=== PATIENT | female | born 1985 | race Caucasian/White ===

== ENCOUNTER → 2016-07-19 | Outpatient (CLI) | payer OTHER ==
[~2016-07-19] MED LIST: PRENTAB26 PO
[2016-07-19 14:09] LABS: URINE APPEARANCE CLEAR (CLEAR); URINE BILIRUBIN NEG (NEG); URINE COLOR YELLOW; URINE EPITHELIAL CELL AUTO >30 /lpf (0-5); URINE NITRITE NEG (NEG); URINE SPECIFIC GRAVITY 1.025 (1.000-1.030); UROBILINOGEN NEG (NEG)
[2016-07-19 14:11] LABS: MANUAL MICROSCOPIC REQUIRED? NO; REVIEW REQ? NO
== END | disposition home or self-care (01) ==
LOC: C.LABSPEC 17:49
PROVIDERS: ATTEND Obstetrics & Gynecology
DX: Z34.90 Encounter for supervision of normal pregnancy, unspecified, unspecified trimester (principal)

== ENCOUNTER → 2016-07-27 | Outpatient (CLI) | payer OTHER ==
[2016-07-27 17:34] LABS: BASO % 0.3 %; BASO ABS # 0.03 K/uL (0-0.2); COMPLETE YES; EOS % 0.9 %; HEMATOCRIT 38.3 % (37-47); IG% 0.5 %; LYMPH ABS # 2.94 K/uL (1.2-3.4); MEAN CELL VOLUME 86.1 fL (80-100); MEAN CORPUSCULAR HEMOGLOBIN 30.1 pg (25-34); MEAN PLATELET VOLUME 10.5 fL (7.4-10.4); MONO % 5.9 %; NEUT % 65.4 %; PLATELET COUNT 318 K/uL (130-400); RED BLOOD COUNT 4.45 M/uL (4.2-5.4); WHITE BLOOD COUNT 10.89 K/uL (4.8-10.8)
== END | disposition home or self-care (01) ==
LOC: C.LAB 16:04
PROVIDERS: ATTEND Obstetrics & Gynecology
DX: Z34.90 Encounter for supervision of normal pregnancy, unspecified, unspecified trimester (principal)

== ENCOUNTER → 2016-07-27 | Outpatient (CLI) | payer OTHER ==
[2016-07-30 04:01] LABS: CHLAMYDIA TRACH RNA*** NOT DETECTED (NOT DETECTED); GC (NEIS GONORRHOEAE)RNA** NOT DETECTED (NOT DETECTED)
== END | disposition home or self-care (01) ==
LOC: C.LABSPEC 17:54
PROVIDERS: ATTEND Obstetrics & Gynecology
DX: Z34.90 Encounter for supervision of normal pregnancy, unspecified, unspecified trimester (principal)

== ENCOUNTER → 2016-08-17 | Outpatient (CLI) | payer OTHER ==
[2016-08-17 10:35] LABS: URINE APPEARANCE CLEAR (CLEAR); URINE BILIRUBIN NEG (NEG); URINE COLOR DK YELLOW; URINE EPITHELIAL CELL AUTO >30 /lpf (0-5); URINE NITRITE NEG (NEG); URINE PH >= 9.0 (4.5-7.5); URINE SPECIFIC GRAVITY 1.024 (1.000-1.030); UROBILINOGEN NEG (NEG)
[2016-08-17 10:47] LABS: MANUAL MICROSCOPIC REQUIRED? NO; REVIEW REQ? YES; SULFASALICYLIC ACID NEG (NEG)
[2016-08-17 11:03] LABS: URINE MUCUS PRESENT (NONE PRSENT)
== END | disposition home or self-care (01) ==
LOC: C.LAB1850 09:19
PROVIDERS: ATTEND Obstetrics & Gynecology
DX: R30.0 Dysuria (principal)

== ENCOUNTER → 2016-08-27 | Outpatient (CLI) | payer OTHER ==
[2016-08-27 13:20] LABS: URINE APPEARANCE CLEAR (CLEAR); URINE BILIRUBIN NEG (NEG); URINE COLOR YELLOW; URINE EPITHELIAL CELL AUTO >30 /lpf (0-5); URINE NITRITE NEG (NEG); UROBILINOGEN NEG (NEG)
[2016-08-27 13:26] LABS: MANUAL MICROSCOPIC REQUIRED? NO; REVIEW REQ? NO
== END | disposition home or self-care (01) ==
LOC: C.LAB1850 12:14
PROVIDERS: ATTEND Obstetrics & Gynecology
DX: O23.42 Unspecified infection of urinary tract in pregnancy, second trimester (principal)

== ENCOUNTER → 2016-09-24 | Outpatient (CLI) | payer OTHER ==
[2016-09-24 13:42] LABS: GTGD 50 Grams
[2016-09-27 12:17] LABS: AFP CONCENTRATION 36.5 NG/ML; AFP MULTIPLE OF MEDIAN 1.14; AFPTS GESTATIONAL AGE 17.1 WEEKS; AFPTS INSULIN DEP DIABETIC? NO; AFPTS MATERNAL WT 196 LBS; ALPHA-FETOPROTEIN RACE CAUCASIAN=W; HISTORY OF NTD NO; REPEAT SAMPLE? NO
== END | disposition home or self-care (01) ==
LOC: C.LAB1850 10:13
PROVIDERS: ATTEND Obstetrics & Gynecology
DX: Z34.81 Encounter for supervision of other normal pregnancy, first trimester (principal)

== ENCOUNTER → 2016-12-15 | Outpatient (CLI) | payer OTHER ==
[2016-12-15 12:20] LABS: URINE APPEARANCE CLEAR (CLEAR); URINE BILIRUBIN NEG (NEG); URINE COLOR YELLOW; URINE EPITHELIAL CELL AUTO >30 /lpf (0-5); URINE NITRITE NEG (NEG); URINE SPECIFIC GRAVITY 1.015 (1.000-1.030); UROBILINOGEN NEG (NEG)
[2016-12-15 12:27] LABS: MANUAL MICROSCOPIC REQUIRED? NO; REVIEW REQ? NO
[2016-12-15 12:34] LABS: HEMATOCRIT 33.2 % (37-47)
[2016-12-15 15:01] LABS: GTGD 50 Grams
== END | disposition home or self-care (01) ==
LOC: C.LAB1850 09:08
PROVIDERS: ATTEND Obstetrics & Gynecology
DX: Z34.82 Encounter for supervision of other normal pregnancy, second trimester (principal)

== ENCOUNTER → 2017-02-10 | Outpatient (CLI) | payer OTHER ==
[2017-02-10 13:21] LABS: HEMATOCRIT 33.5 % (37-47); MEAN CELL VOLUME 82.3 fL (80-100); MEAN CORPUSCULAR HEMOGLOBIN 25.6 pg (25-34); PLATELET COUNT 301 K/uL (130-400); RED BLOOD COUNT 4.07 M/uL (4.2-5.4); WHITE BLOOD COUNT 13.43 K/uL (4.8-10.8)
[2017-02-10 14:20] LABS: ALT/SGPT 15 U/L (12-78); CREATININE 0.63 mg/dl (0.60-1.20); URIC ACID 4.4 mg/dl (2.6-7.2)
[2017-02-10 14:23] LABS: ALKALINE PHOSPHATASE 148 U/L (45-117); AST/SGOT 14 U/L (15-37)
== END | disposition home or self-care (01) ==
LOC: C.LAB1850 12:15
PROVIDERS: ATTEND Obstetrics & Gynecology
DX: O13.3 Gestational [pregnancy-induced] hypertension without significant proteinuria, third trimester (principal); Z3A.00 Weeks of gestation of pregnancy not specified

== ENCOUNTER 2017-02-12 21:30 | Inpatient (IN) | payer OTHER ==
[~2017-02-12] VITALS: Ht 162.6 cm; Wt 102.3 kg
[2017-02-12] MEDS ORDERED: LACTATED RINGER'S 1000ML 1,000 ML IV PRN (22:09)
[2017-02-12] MEDS ORDERED: CEFAZOLIN IV 1,000 MG in DEXTROSE 5% 50ML 50 ML IV PRN (22:15)
[2017-02-12] MEDS ORDERED: CEFAZOLIN IV 2,000 MG in DEXTROSE 5% 50ML 50 ML IV STA (22:29)
[2017-02-12] MEDS ORDERED: PRENTAB26 PO (22:33)
[2017-02-12] MEDS: LACTATED RINGER'S 1000ML 1,000 ML IV SCH (22:41)
[2017-02-12 22:47] VITALS: Ht 162.6 cm; Wt 102.3 kg
[2017-02-12 22:56] LABS: HEMATOCRIT 30.1 % (37-47); MEAN CELL VOLUME 81.4 fL (80-100); MEAN CORPUSCULAR HEMOGLOBIN 25.9 pg (25-34); MEAN CORPUSCULAR HGB CONC 31.9 g/dl (32-36); MEAN PLATELET VOLUME 9.4 fL (7.4-10.4); PLATELET COUNT 292 K/uL (130-400); WHITE BLOOD COUNT 12.01 K/uL (4.8-10.8)
[2017-02-13] MEDS ORDERED: LACTATED RINGER'S 1000ML 500 ML IV PRN ×2 (02:38→04:18)
[2017-02-13] MEDS ORDERED: OXYTOCIN 30 UNITS/500ML NSS IV PRN ×2 (02:45→06:45)
[2017-02-13] MEDS: LACTATED RINGER'S 1000ML 1,000 ML IV SCH ×2 (02:48→04:19)
[2017-02-13] MEDS ORDERED: EpHEDrine SULFATE INJ 50 MG/ML AMP ONE (03:22)
[2017-02-13] MEDS ORDERED: BUPIVACAINE 0.25% 30 ML VIAL ONE (03:22)
[2017-02-13] MEDS ORDERED: FENTANYL CITRATE INJ 50 MCG/1 ML 2 ML VIAL ONE (03:23)
[2017-02-13] MEDS ORDERED: FENTANYL 2MCG/ML ROPIV 1.25MG/ML 100ML BAG EPI ONE (03:23)
[2017-02-13] MEDS ORDERED: NALOXONE HCL INJ 1 MG in SODIUM CHLORIDE 0.9% 1000ML 1,000 ML IV PRN ×4 (04:18)
[2017-02-13] MEDS ORDERED: PROMETHAZINE HCL INJ 12.5 MG in SODIUM CHLORIDE 0.9% 50ML 50 ML IV PRN (04:30)
[2017-02-13] MEDS ORDERED: EpHEDrine SULFATE INJ 50 MG/ML AMP IV PRN (04:30)
[2017-02-13] MEDS ORDERED: DiphenhydrAMINE HCL 50 MG/ML VIAL IV PRN (04:30)
[2017-02-13] MEDS ORDERED: ONDANSETRON INJ 2 MG/ML 2 ML VIAL IV PRN (04:30)
[2017-02-13] MEDS ORDERED: NALBUPHINE HCL INJ 10 MG/ML AMP IV PRN (04:30)
[2017-02-13] MEDS ORDERED: FENTANYL 2MCG/ML ROPIV 1.25MG/ML 100ML BAG EPI PRN (04:30)
[2017-02-13] MEDS ORDERED: NALOXONE HCL INJ 0.4 MG/1 ML VIAL/CARP IV PRN (04:30)
[2017-02-13] MEDS ORDERED: ACETAMINOPHEN 325 MG TAB PO PRN (06:45)
[2017-02-13] MEDS ORDERED: SUPERCREAM 0.870 % 15GM JAR EXT PRN (06:45)
[2017-02-13] MEDS ORDERED: OXYCODONE/ACETAMINOPHEN 5-325 TAB PO PRN (06:45)
[2017-02-13] MEDS ORDERED: BENZOCAINE 20% AER SPR 82.5 GM CAN EXT PRN (06:45)
[2017-02-13] MEDS ORDERED: DIPHTHERIA/TETANUS/PERTUSSIS 0.5 ML SYR/VIAL IM. ONE (06:45)
[2017-02-13] MEDS ORDERED: LANOLIN OINT EXT PRN ×2 (06:45)
[2017-02-13] MEDS ORDERED: HYDROCORTISONE ACETATE 25 MG SUPP PR PRN (06:45)
[2017-02-13] MEDS: DOCUSATE SODIUM 100 MG CAP PO SCH ×2 (07:50→19:35)
[2017-02-13] MEDS: PRENATAL VITAMIN TAB PO SCH (07:50)
--- NOTE | 2017-02-13 08:04 | Anesthesia Procedure Note ---
Anesthesia Epidural Removal Nt Date & Time Feb 13, 2017 at 08:03 Vital Signs Pain Intensity: 0.0 Notes Mental Status: alert / awake / arousable, participated in evaluation Nausea / Vomiting: adequately controlled Pain: adequately controlled Airway Patency, RR, SpO2: stable & adequate BP & HR: stable & adequate Hydration State: stable & adequate Neuraxial Anesthesia: was administered, sensory block is resolving Anesthetic Complications: no major complications apparent, pt satisfied with anesthetic care Epidural: removed without complications, with tip intact
[2017-02-13 09:00] VITALS: BP 146/90; PULSE 101; TEMP 36.4
--- NOTE | 2017-02-13 09:32 | DELIVERY SUMMARY ---
DATE OF OPERATION: 02/12/2017 PREOPERATIVE DIAGNOSES: 1. Intrauterine at 37 plus weeks. 2. Gestational hypertension. 3. Premature rupture of membranes. POSTOPERATIVE DIAGNOSES: Same. PROCEDURES: 1. Pitocin augmentation. 2. Epidural anesthesia. 3. Normal spontaneous vaginal delivery. 4. First degree perineal laceration with repair. SURGEON: Dr. Justina Leogn. ANESTHESIA: Epidural. ESTIMATED BLOOD LOSS: 300 mL. DESCRIPTION OF PROCEDURE: The patient presented to labor and delivery with gross rupture of membranes, at 3 cm dilated. She did not progress after 6 hours and so, Pitocin augmentation was initiated. She underwent an epidural anesthesia. Her Pitocin was maxed at 5 milliunits and she then progressed to complete complete and +1 station. She pushed effectively to delivery a viable female infant in NEREIDA presentation. There was no nuchal cord. The nose and mouth were bulb suctioned on the perineum. The anterior delivered spontaneously albeit slowly without need for intervention. The rest of the baby was then delivered without difficulty. The nose and mouth were again bulb suctioned. The infant was placed on the maternal abdomen for drying and attention. The cord was clamped and cut at 1 minute of life. Cord blood and segment were obtained. Placenta was delivered spontaneously, intact with a 3-vessel cord. Cervix, sulci, and rectum were examined and found to be intact. A small first degree laceration was repaired with 3-0 Vicryl in standard fashion. Hemostasis was obtained with dilute Pitocin and fundal massage. Apgars were 8 and 9. Weight pending. Mother and baby were doing well at the end of the delivery. I attest to the content of the Intraoperative Record and any orders documented therein. Any exceptions are noted below. [facility]
[2017-02-13] MEDS: IBUPROFEN 600 MG TAB PO PRN ×4 (10:15→23:53)
[2017-02-13 12:30] VITALS: BP 125/79; PULSE 71; TEMP 37.2
[2017-02-13 16:00] VITALS: BP 137/83; PULSE 78; TEMP 36.7
[2017-02-13 19:20] LABS: HEMATOCRIT 29.6 % (37-47); MEAN CELL VOLUME 81.3 fL (80-100); MEAN CORPUSCULAR HEMOGLOBIN 26.6 pg (25-34); MEAN CORPUSCULAR HGB CONC 32.8 g/dl (32-36); MEAN PLATELET VOLUME 9.5 fL (7.4-10.4); PLATELET COUNT 254 K/uL (130-400); RED BLOOD COUNT 3.64 M/uL (4.2-5.4)
[2017-02-13 19:25] VITALS: BP 138/82; PULSE 76; TEMP 36.7; O2SAT 98
[2017-02-13 19:38] LABS: BUN/CREATININE RATIO 10.5 (10-20); CALCIUM 8.8 mg/dl (8.5-10.1); CREATININE 0.73 mg/dl (0.60-1.20); POTASSIUM 3.9 mmol/L (3.5-5.1)
[2017-02-13 19:40] LABS: ALB/GLOB RATIO 0.7 (0.9-2)
[2017-02-13 23:40] VITALS: BP 121/79; PULSE 79; TEMP 36.4; O2SAT 98
[2017-02-14 03:50] VITALS: BP 121/80; PULSE 71; TEMP 36.4; O2SAT 99
[2017-02-14 06:41] LABS: HEMATOCRIT 32.8 % (37-47)
--- NOTE | 2017-02-14 06:47 | Progress Note ---
Subjective Feb 14, 2017. Subjective conversation w/ patient, physical exam, lab review Ambulation: ambulating normally Voiding: no voiding problems Passing Gas: Yes Diet Tolerance: Regular Diet Lochia: Small Feeding Type: Breast Feeding Pain: controlled Objective Vital Signs Date Time Temp Pulse Resp B/P (MAP) Pulse Ox O2 Delivery O2 Flow Rate FiO2 02/14/17 03:50 36.4 71 20 121/80 (94) 99 Room Air 02/13/17 23:40 98 Room Air 02/13/17 23:40 36.4 79 20 121/79 (93) 98 Room Air 02/13/17 19:25 36.7 76 20 138/82 (100) 98 Room Air 02/13/17 16:00 36.7 78 20 137/83 (101) 02/13/17 12:30 37.2 71 16 125/79 (94) Room Air 02/13/17 09:00 36.4 101 16 146/90 (108) Room Air 02/13/17 09:00 Room Air Physical Exam General Appearance: WELL-APPEARING, WD/WN, NO APPARENT DISTRESS Abdomen: non tender, soft Fundus: Firm, Non-Tender, Relation to Umbilicus (1 below u) Extremities: non-tender, normal inspection, no pedal edema Laboratory Results Last 24 Hours Test 02/13/17 19:10 02/14/17 06:26 White Blood Count 15.30 K/uL Red Blood Count 3.64 M/uL Hemoglobin 9.7 g/dL 10.0 g/dL Hematocrit 29.6 % 32.8 % Mean Corpuscular Volume 81.3 fL Mean Corpuscular Hemoglobin 26.6 pg Mean Corpuscular Hemoglobin Concent 32.8 g/dl RDW Standard Deviation 43.6 fL RDW Coefficient of Variation 14.8 % Platelet Count 254 K/uL Mean Platelet Volume 9.5 fL Sodium Level 140 mmol/L Potassium Level 3.9 mmol/L Chloride Level 109 mmol/L Carbon Dioxide Level 23 mmol/L Anion Gap 8.0 mmol/L Blood Urea Nitrogen 8 mg/dl Creatinine 0.73 mg/dl Est Creatinine Clear Calc Drug Dose 130.0 ml/min Estimated GFR () 127.2 Estimated GFR (Non- 109.7 BUN/Creatinine Ratio 10.5 Random Glucose 100 mg/dl Calcium Level 8.8 mg/dl Total Bilirubin 0.2 mg/dl Aspartate Amino Transf (AST/SGOT) 26 U/L Alanine Aminotransferase (ALT/SGPT) 18 U/L Alkaline Phosphatase 123 U/L Total Protein 5.8 gm/dl Albumin 2.4 gm/dl Globulin 3.4 gm/dl Albumin/Globulin Ratio 0.7 Assessment and Plan Problem List Medical Problems: (1) Bladder calculi Status: Acute (2) History of kidney stones Status: Chronic (3) Right flank laceration Status: Acute Post- Day#: 1 Continue Routine Care: Doing well. Routine care. GBS positive without 2 doses of antibiotics so baby will likely be staying.
--- NOTE | 2017-02-14 06:48 | Discharge Instructions ---
Discharge Instructions Date of Service Feb 14, 2017. Admission Reason for Admission: Check Rupture Discharge Discharge Diagnosis / Problem: s/p vaginal delivery Discharge Goals Goal(s): Routine recovery after delivery Medications Continue Dispensed Medications: supercream, dermaplast, tucks, lansinoh Activity Recommendations Activity Limitations: per Instructions/Follow-up section . Instructions / Follow-Up Instructions / Follow-Up ACTIVITY RECOMMENDATIONS: * Gradual return to full activity over the next 2-3 weeks. * No lifting - nothing heavier than baby over the next 2-3 weeks. * Do not engage in vigorous exercise, sexual activity or sports until cleared by your physician. * Do not drive or operate any motorized equipment until cleared by your physician. * You may shower/bathe daily. MEDICATIONS: For discomfort or pain, you may use Acetaminophen (Tylenol), Ibuprofen (Advil), or Naproxen (Aleve) following the package directions. For constipation you may use Colace following the package directions. BREAST CARE: If you are not breast feeding: * Wear a supportive bra 24 hours a day for one to two weeks. * Avoid stimulating your breasts and nipples as much as possible during the first few weeks after delivery. * When taking a shower, have the warm water hit your back, not breasts. * When your breasts feel full, apply ice packs. Usually three to four times a day helps ease the discomfort. * Take a mild pain medication (Tylenol / Motrin) when you are uncomfortable. If breast feeding: * Use breast milk to lubricate nipples. Lansinoh cream may be used for sore nipples. You do not need to remove cream prior to breast feeding. If using a different brand of cream, check the label for directions regarding removal of cream prior to nursing. * Wear a supportive bra. * If having problems with breasts or breast feeding, call a [employer] consultant or your health care provider. EPISIOTOMY CARE: After delivery, if you have an episiotomy (stitches), the following steps will ease discomfort and aid healing. * For the first 24 hours after delivery, place ice packs next to your episiotomy to help reduce swelling. * After the first 24 hour-period, sitz baths, either portable or in the tub, are suggested. A shower with a shower arm sprayed over the episiotomy may be comforting. * Yecenia care should be done after each voiding and bowel movement. Squirt warm water from a plastic bottle over the perineum (region of the body between the anus and urinary opening) and pat dry. * Use Dermoplast to ease discomfort. Shake container. Weinert directly over the episiotomy. Place a Tucks on a clean sanitary pad next to your episiotomy. SPECIAL CARE INSTRUCTIONS: When you are discharged from the hospital, it is important for you to follow the instructions listed below: * During the first week at home, you should be able to care for yourself and your baby. In addition, the usual light household activities are encouraged. * Limit your activities to the way you feel. Do not try to clean the house or move furniture. Be sensible. * If you actively engage in sports and have done so up until the time of your delivery, you may resume these activities as soon as you feel able. This may take up to one month or even longer. Use good judgment. * Continue to take your vitamins for at least six weeks after the of your baby. * Your diet need not be limited unless you were on a special diet before your delivery. Breast-feeding mothers need around 2500 calories per day and at least 64-80 ounces of fluid per day (8 to 10 glasses). * You should eat foods from the four major food groups. Crash diets or fad diets are to be avoided. Eating lean meats, fresh fruits and vegetables, low-fat dairy products, high fiber foods and a regular exercise program, will help you get back to your pre- weight without putting your health at risk. * Constipation is sometimes a problem after delivery. Take a mild laxative as needed. If breast feeding, Milk of Magnesia is acceptable to use. You may use a suppository or Fleets enema if no episiotomy. * A daily shower or tub bath is suggested. Be sure to thoroughly and gently dry the perineum. * A bloody vaginal discharge will usually continue until around four weeks post . A small amount of bleeding may continue for as long as six weeks. Vaginal discharge changes from the bright red bleeding after delivery to pink then brownish and finally yellowish-pink before becoming white and disappearing. * Bleeding may increase with activity. Your first period may come in 4-8 weeks. If you are breast feeding, your period may be delayed even longer. * [place] (sex) can begin whenever both you and your partner feel comfortable and do not have any form of genital infection. It is recommended that you wait at least six weeks for internal and external healing to occur. If you have questions, please talk to your health care practitioner. A condom should be used to prevent infection and . * Foreplay, gentle intercourse and lubrication is very important the first several times to prevent pain. A water-based lubricant such as K-Y jelly or Astroglide may be used. * If you have RH negative blood and your baby is RH positive, you will receive RHOGAM by injection prior to discharge. The nurse will give you a card to keep with you that has the date and place that you received RHOGAM after delivery. * During your care, you had a Rubella screen done to check for the presence of rubella antibodies in your blood. If your test was negative, you will receive a Rubella vaccine prior to discharge. This vaccine may cause a fever, soreness at the injection site and flu-like symptoms. If these symptoms persist, notify your health care practitioner. is not advised for one month after a Rubella vaccine. * Verbalizes understanding of car seat law as reviewed with patient nursing. * Car Seat hand-out given and reviewed with patient by nursing. * Shaken baby information reviewed with patient by nursing. Call you doctor if: * Heavy bleeding (saturating several pads an hour) or passing clots the size of your fist. * A fever >101 degrees F (38.3 degrees C) on two occasions four hours apart and /or chills. * Unusual pain in the pelvic or vaginal areas. * "Baby Blues" lasting longer than two weeks. If you have any questions or concerns, call your health care practitioner at . FOLLOW UP VISIT: * Please call the office at to schedule a 6 week examination. It is important you keep this appointment. It is important for you to make arrangements for either yearly or twice yearly check-ups thereafter. Current Hospital Diet Patient's current hospital diet: Regular OB Diet Discharge Diet Recommended Diet: Regular Diet Pending Studies Studies pending at discharge: no Medical Emergencies . Who to Call and When: Medical Emergencies: If at any time you feel your situation is an emergency, please call [phone] immediately. . Non-Emergent Contact Non-Emergency issues call your: [employer] . . "Provider Documentation" section prepared by Justina Leong. . VTE Core Measure Inpt VTE Proph given/why not?: Treatment not indicated
[2017-02-14] MEDS: DOCUSATE SODIUM 100 MG CAP PO SCH (07:48)
[2017-02-14] MEDS: PRENATAL VITAMIN TAB PO SCH (07:48)
[2017-02-14] MEDS: IBUPROFEN 600 MG TAB PO PRN (07:49)
[2017-02-14 07:55] VITALS: BP 130/84; PULSE 77; TEMP 36.4
[2017-02-14 09:45] VITALS: BP_DIAS 84; PULSE 77; TEMP 36.4
== END 2017-02-14 09:45 | disposition home or self-care (01) | DRG 775 ==
LOC: C.OPB 21:30 → C.LD 21:30 → C.OPB 22:27 → C.LD 22:27 → C.OBG 02-13 08:58
PROVIDERS: ADMIT Obstetrics & Gynecology; ATTEND Obstetrics & Gynecology
PROC: 10E0XZZ Delivery of Products of Conception, External Approach (ICD-10-PCS; principal; 2017-02-12)
PROC: 0HQ9XZZ Repair Perineum Skin, External Approach (ICD-10-PCS; principal; 2017-02-12)
DX: O70.0 First degree perineal laceration during delivery (principal); O99.824 Streptococcus B carrier state complicating childbirth; O99.89 Other specified diseases and conditions complicating pregnancy, childbirth and the puerperium; O13.4 Gestational [pregnancy-induced] hypertension without significant proteinuria, complicating childbirth; N21.0 Calculus in bladder; O42.02 Full-term premature rupture of membranes, onset of labor within 24 hours of rupture; Z3A.37 37 weeks gestation of pregnancy; Z37.0 Single live birth

== ENCOUNTER 2017-10-28 19:59 | Emergency (ER) | payer OTHER ==
[~2017-10-28] VITALS: Ht 165.1 cm; Wt 98.0 kg
[2017-10-28 20:04] VITALS: TEMP 36.8; Ht 165.1 cm; Wt 98.0 kg
[2017-10-28] MEDS ORDERED: KETOROLAC TROMETHAMINE 30 MG/ML VIAL IV STA (20:17)
[2017-10-28] MEDS ORDERED: ONDANSETRON INJ 2 MG/ML 2 ML VIAL IV STA ×2 (20:17→23:20)
--- NOTE | 2017-10-28 20:17 | EMERGENCY ROOM VISIT NOTE ---
History Report prepared by Jami: Aaron Arauz Under the Supervision of: Dr. Amandeep Britton M.D. First contact with patient: 20:06 Chief Complaint: FLANK PAIN Stated Complaint: KIDNEY STONES History of Present Illness The patient is a 32 year old white female with a past medical history of kidney stones who presents to the ED with a cc of worsening right-sided flank pain beginning prior to arrival. Patient describes the pain as sharp and as if "someone punched her in the back". Patient states that the pain is worsened when she moves around. She denies any recent trauma to the area. Positive symptoms include hematuria and intermittent nausea. Patient states that she started her menstrual period today. She denies taking blood thinner medications. Negative symptoms include vomiting, diarrhea, and fevers. Source of History: patient Onset: Prior to arrival Position: other (Right-sided flank pain) Quality: sharp Timing: worsening Modifying Factors (Worsening): movement Modifying Factors (Relieving): other (None) Associated Symptoms: + nausea, No fevers, No vomiting, No diarrhea Note: Patient has hematuria. Review of Systems See HPI for pertinent positives and negatives. A total of ten systems were reviewed and were otherwise negative. Past Medical & Surgical Medical Problems: (1) Abdominal pain (2) History of kidney stones (3) Kidney stone Surgical Problems: (1) History of appendectomy Family History No pertinent family history Social History Smoking Status: Never Smoker Alcohol Use: occasionally Drug Use: none Marital Status: Housing Status: lives with family Occupation Status: employed Current/Historical Medications Scheduled Probiotic Product (Probiotic), 1 CAP PO DAILY Tamsulosin Hcl (Flomax), 1 CAP PO DAILY Scheduled PRN Ondansetron Hcl (Zofran), 1 TAB PO Q6H PRN for Nausea Allergies Coded Allergies: Penicillins (Verified Allergy, Unknown, JOINT SWELLING, 02/12/17) Physical Exam Vital Signs Date Time Temp Pulse Resp B/P (MAP) Pulse Ox O2 Delivery O2 Flow Rate FiO2 10/29/17 00:28 81 20 147/88 97 Room Air 10/28/17 23:07 83 18 148/91 97 Room Air 10/28/17 22:42 71 16 142/73 97 Room Air 10/28/17 22:13 75 16 146/100 97 Room Air 10/28/17 21:28 69 20 156/103 98 Room Air 10/28/17 20:04 36.8 91 18 150/95 97 Room Air Physical Exam GENERAL: Awake, alert, well-appearing, NAD HENT: Normocephalic, atraumatic. EYES: Normal conjunctiva. Sclera non-icteric. PERRL. No anisocoria. NECK: Supple. No nuchal rigidity. FROM. RESPIRATORY: CTAB, no rhonchi, wheezing, crackles CARDIAC: RRR, no MRG ABDOMEN: Soft, BS+, mild right-sided CVA TTP, mild right sided flank pain, no RLE pain, negative obturators, negative psoas MSK: No chest wall TTP, no LE edema NEURO: GCS 15, CN 2-12 intact, moves all 4s on command SKIN: No rash or jaundice noted. Medical Decision & Procedures ER Provider Diagnostic Interpretation: Radiology results as stated below per my review and radiologist interpretation: CT A/P w/o Contrast: 5 x 8 mm stone in right proximal ureter w/ mild obstructive changes. Medullary nephrocaclinosis. Tampon. Radiologist: Werner Bains M.D> Study ready at 23:57, and intial results transmitted at 00:26 Laboratory Results 10/28/17 20:22 Red Blood Count 4.51, Mean Corpuscular Volume 84.3, Mean Corpuscular Hemoglobin 28.6, Mean Corpuscular Hemoglobin Concent 33.9, Mean Platelet Volume 9.6, Neutrophils (%) (Auto) 62.7, Lymphocytes (%) (Auto) 26.3, Monocytes (%) (Auto) 7.2, Eosinophils (%) (Auto) 3.1, Basophils (%) (Auto) 0.3, Neutrophils # (Auto) 5.73, Lymphocytes # (Auto) 2.41, Monocytes # (Auto) 0.66, Eosinophils # (Auto) 0.28, Basophils # (Auto) 0.03 10/28/17 20:22 Test 10/28/17 20:22 10/28/17 20:25 10/28/17 21:15 White Blood Count 9.15 K/uL (4.8-10.8) Red Blood Count 4.51 M/uL (4.2-5.4) Hemoglobin 12.9 g/dL (12.0-16.0) Hematocrit 38.0 % (37-47) Mean Corpuscular Volume 84.3 fL (80-100) Mean Corpuscular Hemoglobin 28.6 pg (25-34) Mean Corpuscular Hemoglobin Concent 33.9 g/dl (32-36) Platelet Count 295 K/uL (130-400) Mean Platelet Volume 9.6 fL (7.4-10.4) Neutrophils (%) (Auto) 62.7 % Lymphocytes (%) (Auto) 26.3 % Monocytes (%) (Auto) 7.2 % Eosinophils (%) (Auto) 3.1 % Basophils (%) (Auto) 0.3 % Neutrophils # (Auto) 5.73 K/uL (1.4-6.5) Lymphocytes # (Auto) 2.41 K/uL (1.2-3.4) Monocytes # (Auto) 0.66 K/uL (0.11-0.59) Eosinophils # (Auto) 0.28 K/uL (0-0.5) Basophils # (Auto) 0.03 K/uL (0-0.2) RDW Standard Deviation 39.8 fL (36.4-46.3) RDW Coefficient of Variation 13.2 % (11.5-14.5) Immature Granulocyte % (Auto) 0.4 % Immature Granulocyte # (Auto) 0.04 K/uL (0.00-0.02) Anion Gap 8.0 mmol/L (3-11) Est Creatinine Clear Calc Drug Dose 128.2 ml/min Estimated GFR () 126.3 Estimated GFR (Non- 109.0 BUN/Creatinine Ratio 18.0 (10-20) Calcium Level 8.6 mg/dl (8.5-10.1) Urine Test NEG (NEG) Urine Color DK YELLOW Urine Appearance CLOUDY (CLEAR) Urine pH 5.5 (4.5-7.5) Urine Specific [place] 1.030 (1.000-1.030) Urine Protein 1+ (NEG) Urine Glucose (UA) NEG (NEG) Urine Ketones NEG (NEG) Urine Occult Blood 3+ (NEG) Urine Nitrite NEG (NEG) Urine Bilirubin NEG (NEG) Urine Urobilinogen NEG (NEG) Urine Leukocyte Esterase TRACE (NEG) Urine WBC (Auto) 1-5 /hpf (0-5) Urine RBC (Auto) >30 /hpf (0-4) Urine Hyaline Casts (Auto) 1-5 /lpf (0-5) Urine Epithelial Cells (Auto) 20-30 /lpf (0-5) Urine Bacteria (Auto) NEG (NEG) Laboratory results reviewed by me Medications Administered Medications (Trade) Dose Ordered Sig/Dwayne Route Start Time Stop Time Status Last Admin Dose Admin Ondansetron HCl (Zofran Inj) 4 mg NOW STAT IV 10/28/17 20:17 10/28/17 20:19 DC 10/28/17 20:37 4 MG Ketorolac Tromethamine (Toradol Inj) 30 mg NOW STAT IV 10/28/17 20:17 10/28/17 20:19 DC 10/28/17 20:38 30 MG Hydromorphone HCl (Dilaudid Inj) 1 mg NOW STAT IV 10/28/17 22:03 10/28/17 22:04 DC 10/28/17 22:10 1 MG Ondansetron HCl (Zofran Inj) 4 mg NOW STAT IV 10/28/17 23:20 10/28/17 23:21 DC 10/28/17 23:20 4 MG Metoclopramide HCl (Reglan Inj) 10 mg NOW STAT IV. 10/29/17 00:01 10/29/17 00:02 DC 10/29/17 00:21 10 MG ED Course 2002: The patient was evaluated in room A2. A complete history and physical exam was performed. 2101: I reassessed the patient and discussed her results with her. Patient states that she is still having pain. 0001: I reassessed the patient and updated her on her findings. 0046: I reevaluated the patient. Discussed results and discharge instructions. She verbalized understanding and agreement. The patient is ready for discharge. Medical Decision Nursing notes reviewed. Ancillary studies and prior records reviewed. The patient is a 32 year old white female with a past medical history of kidney stones who presents to the ED with a cc of worsening right-sided flank pain beginning prior to arrival. The patient's presentation and history were concerning for renal colic, appendicitis, diverticulitis, mesenteric ischemia, aortic pathology, infections , inflammatory bowel disease, PUD, biliary pathology, UTI, as well as others were entertained. Patient was seen and evaluated the bedside. Patient was complaining some right- sided flank pain that been ongoing this noon. She does state that she is a prior history of kidney stones. The patient had noticed some hematuria. On exam the patient does have some right-sided flank pain. The patient has no right-sided lower abdominal pain. Patient denies any dysuria. Patient did blood work completed along with urinalysis. We initially did discuss obtaining imaging however we discussed that if she does have hematuria and has normal kidney function and her pain is under control we could potentially avoid imaging. Patient's other risk completed and the patient was given medications for symptom control. Patient's white blood cell count within normal limits. Patient has normal kidney function. The patient does have hematuria but no signs of infection. Patient was still feeling uncomfortable as the patient was given additional rounds of pain medications and antiemetics. She did state that she would like imaging completed at this time. Patient did have imaging completed. There was some time between obtaining the imaging and then obtaining a CT read. The patient's and would like to leave. I did notice that the patient does have ureterolithiasis at the right proximal ureter. She does have mild hydro-. I measured this in approximately 7 mm. I told her that it is on the cusp of potentially needing additional treatments with urology. We discussed that regardless of what would happen that she would need to follow-up with urology. I did convey this to the case advocate who helped with obtaining a follow-up appointment. I did discuss that given the pain medication she should hold off on breast-feeding for at least 12 hours. The patient was wanted to go as the has been needed to work early in the morning. She was told that she will need to follow-up with the urologist and to return if she has any worsening symptoms. CT read showed that the patient did have 5 x 8 mm stone in the proximal right ureter with obstructive changes. Patient's pain was mildly improved. The patient does not appear infected and is stable vital signs with a normal white blood cell count. Patient was discharged home. Patient was given strict follow-up, discharge, and return precautions. All questions were answered. Patient was deemed suitable for outpatient follow-up at this time. Patient agreed with the plan of care and was safely discharged home. Medication Reconcilliation Current Medication List: was personally reviewed by me Blood Pressure Screening Patient's blood pressure: Elevated blood pressure Blood pressure disposition: Elevated BP felt to be situational Impression Primary Impression: Ureterolithiasis Additional Impressions: Flank pain Hematuria Scribe Attestation The scribe's documentation has been prepared under my direction and personally reviewed by me in its entirety. I confirm that the note above accurately reflects all work, treatment, procedures, and medical decision making performed by me. Departure Information Dispostion Home / Self-Care Prescriptions Tamsulosin Hcl (FLOMAX) 0.4 Mg Cap 1 CAP PO DAILY for 14 Days, #14 CAP 5 Refills Prov: Amandeep Britton M.D. 10/29/17 Ondansetron Hcl (ZOFRAN) 4 Mg Tab 1 TAB PO Q6H Y for Nausea for 3 Days, #12 TAB 1 Refill Prov: Amandeep Britton M.D. 10/29/17 Referrals No Doctor, Assigned (PCP) Steve Seymour MD, Urology Patient Instructions Kidney Stones - [facility], Kidney Stones [facility], [facility] Additional Instructions Please return to the emergency department if you have worsening or recurrent symptoms not amenable to at-home treatment. Please call for a follow-up appointment with her primary care physician. Please take your medications as prescribed. If you have other concerns and/or complaints please feel free to also call your primary care physician's office or return the ED for further evaluation, management, and treatment. You received narcotic or benzodiazepene medication while in the emergency room today. This is an addictive medication that may cause drowziness as well as constipation. Do not drive, operate heavy machinery, or drink alcohol under the influence of this medication. You may take 800 mg Ibuprofen every 6 hours as needed for pain/fever with food unless told by your physician not to take NSAIDs. You may take tylenol 1000 mg every 6 hours as needed for pain/fever unless told by your physician to not take it or have liver problems. You may take motrin and tylenol separately or at the same time. Please wait approximately 12 hours prior to your next breast-feeding. Please follow-up with the urologist. district wildlife manager will help arrange this appointment. Consider taking the Flomax in the evening before bed as it can cause some lightheadedness. Take your medications as prescribed. You have been examined and treated today on an emergency basis only. This is not a substitute for, or an effort to provide, complete comprehensive medical care. It is impossible to recognize and treat all injuries or illnesses in a single emergency department visit. It is therefore important that you follow up closely with [facility], your PCP, and/or your specialist(s). Call as soon as possible for an appointment. Thank you for your time and consideration. I look forward to speaking with you again soon. Please don't hesitate to call us if you have any questions. Problem Qualifiers Additional Impressions: Hematuria Hematuria type: unspecified type Qualified Codes: R31.9 - Hematuria, unspecified
[2017-10-28] MEDS ORDERED: MISCCAP80 PO (20:29)
[2017-10-28 20:39] LABS: BASO % 0.3 %; BASO ABS # 0.03 K/uL (0-0.2); EOS % 3.1 %; EOS ABS # 0.28 K/uL (0-0.5); HEMOGLOBIN 12.9 g/dL (12.0-16.0); IG# 0.04 K/uL (0.00-0.02); LYMPH % 26.3 %; LYMPH ABS # 2.41 K/uL (1.2-3.4); MEAN CELL VOLUME 84.3 fL (80-100); MEAN CORPUSCULAR HEMOGLOBIN 28.6 pg (25-34); MEAN CORPUSCULAR HGB CONC 33.9 g/dl (32-36); MEAN PLATELET VOLUME 9.6 fL (7.4-10.4); MONO % 7.2 %; MONO ABS # 0.66 K/uL (0.11-0.59); NEUT % 62.7 %; NEUT ABS # 5.73 K/uL (1.4-6.5); PLATELET COUNT 295 K/uL (130-400); RED CELL DISTRIBUTION WIDTH CV 13.2 % (11.5-14.5); RED CELL DISTRIBUTION WIDTH SD 39.8 fL (36.4-46.3); WHITE BLOOD COUNT 9.15 K/uL (4.8-10.8)
[2017-10-28 21:00] LABS: CALCIUM 8.6 mg/dl (8.5-10.1); CREATININE 0.73 mg/dl (0.60-1.20); POTASSIUM 3.4 mmol/L (3.5-5.1)
[2017-10-28] MEDS ORDERED: HYDROmorphone INJ 1 MG/ML SYR IV STA (22:03)
[2017-10-28] MEDS ORDERED: ONDANSETRON INJ 2 MG/ML 2 ML VIAL IV ONE (23:20)
[2017-10-28] MEDS ORDERED: NURSING VERBAL MED ORDER ONE (23:30)
[2017-10-29] MEDS ORDERED: METOCLOPRAMIDE HCL INJ 5 MG/ML 2 ML VIAL IV. STA (00:01)
[2017-10-29] MEDS ORDERED: PROMETHAZINE HCL INJ 12.5 MG in SODIUM CHLORIDE 0.9% 50ML 50 ML IV STA (00:03)
[2017-10-29 00:28] VITALS: BP 147/88; PULSE 81; O2SAT 97
[2017-10-29] MEDS ORDERED: TAMS0.4C38 PO (00:29)
[2017-10-29] MEDS ORDERED: ONDA4TAB65 PO (00:29)
--- NOTE | 2017-10-29 06:32 | DIAGNOSTIC IMAGING REPORT ---
ABD/PELVIS WITHOUT FOR STONE HISTORY: 32 years-old Female h/o renal stone, hematuria, R flank pain acute right-sided flank pain with hematuria COMPARISON: CT abdomen and pelvis 12/04/2012 TECHNIQUE: Multiple axial CT images of the abdomen and pelvis were obtained without the use of IV contrast. A dose lowering technique was used consistent with the principals of TYSON. FINDINGS: Minimal atelectasis of the lung bases. No pneumatosis or pneumoperitoneum. Imaged inferior cardiac chambers are unremarkable. Gallbladder is mildly contracted. The liver, spleen, pancreas and adrenal glands are within normal limits. Increased attenuation of the bilateral medullary pyramids is again noted suggesting medullary nephrocalcinosis. Nonobstructing 2 mm calculus of the superior pole right kidney with additional nonobstructing punctate right-sided nephrolithiasis also noted. There is a 6 x 4 x 8 mm obstructing calculus of the proximal right ureter just distal to the ureteropelvic junction at the level of L3 which causes mild right-sided hydroureteronephrosis with mild right perinephric and periureteral inflammatory stranding. Bladder is partially decompressed. Uterus and adnexa are unremarkable. Tampon is noted within the vagina. Phleboliths of the pelvis. Normal appearance of the aorta. No bulky adenopathy. No bowel obstruction or focal bowel wall thickening. Appendix is not definitively seen. No secondary signs of acute appendicitis. Soft tissues and breast parenchyma appear unremarkable. Bones appear intact. IMPRESSION: 1. Mild right-sided hydroureteronephrosis secondary to a 6 x 4 x 8 mm obstructing calculus of the proximal right ureter. 2. 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 3. No bowel obstruction or focal bowel wall thickening. The above report was generated using voice recognition software. It may contain grammatical, syntax or spelling errors. Electronically signed by: Harvey Souza M.D. 10/29/2017 6:31 AM Dictated Date/Time: 10/29/2017 6:24 AM
[2017-10-29] MEDS ORDERED: OXYC1TAB3 PO (10:13)
== END 2017-10-29 00:33 | disposition home or self-care (01) ==
LOC: C.EDB 20:00 → C.EDA 10-29 00:33
DX: N20.1 Calculus of ureter (principal); R10.9 Unspecified abdominal pain; R31.9 Hematuria, unspecified; Z87.442 Personal history of urinary calculi; Z90.89 Acquired absence of other organs; Z88.0 Allergy status to penicillin

== ENCOUNTER 2017-10-29 07:50 | Emergency (ER) | payer OTHER ==
[~2017-10-29] VITALS: Ht 165.1 cm; Wt 98.0 kg
[~2017-10-29 07:50] MED LIST changes: +MISCCAP80 PO; +ONDA4TAB65 PO; -PRENTAB26 PO; +TAMS0.4C38 PO
[2017-10-29 07:54] VITALS: TEMP 36.6; Ht 165.1 cm; Wt 98.0 kg
[2017-10-29] MEDS ORDERED: SODIUM CHLORIDE 0.9% 1000ML 1,000 ML IV STA (08:08)
[2017-10-29] MEDS ORDERED: KETOROLAC TROMETHAMINE 30 MG/ML VIAL IV STA (08:08)
[2017-10-29] MEDS ORDERED: ONDANSETRON INJ 2 MG/ML 2 ML VIAL IV STA (08:08)
[2017-10-29] MEDS ORDERED: TAMSULOSIN HCL 0.4 MG CAP PO ONE (08:15)
[2017-10-29 08:44] LABS: BASO % 0.2 %; BASO ABS # 0.02 K/uL (0-0.2); EOS % 0.7 %; EOS ABS # 0.09 K/uL (0-0.5); HEMATOCRIT 38.8 % (37-47); HEMOGLOBIN 13.2 g/dL (12.0-16.0); IG# 0.04 K/uL (0.00-0.02); LYMPH % 7.8 %; MEAN CELL VOLUME 84.5 fL (80-100); MEAN CORPUSCULAR HEMOGLOBIN 28.8 pg (25-34); MEAN PLATELET VOLUME 9.7 fL (7.4-10.4); MONO % 3.6 %; MONO ABS # 0.46 K/uL (0.11-0.59); NEUT % 87.4 %; NEUT ABS # 11.13 K/uL (1.4-6.5); PLATELET COUNT 283 K/uL (130-400); RED CELL DISTRIBUTION WIDTH CV 13.2 % (11.5-14.5); RED CELL DISTRIBUTION WIDTH SD 40.5 fL (36.4-46.3); WHITE BLOOD COUNT 12.74 K/uL (4.8-10.8)
[2017-10-29 09:11] LABS: ALBUMIN 3.9 gm/dl (3.4-5.0); ALT/SGPT 26 U/L (12-78); AST/SGOT 15 U/L (15-37); BLOOD UREA NITROGEN 17 mg/dl (7-18); CALCIUM 8.3 mg/dl (8.5-10.1); CARBON DIOXIDE 25 mmol/L (21-32); CREATININE 1.13 mg/dl (0.60-1.20); GLUCOSE 133 mg/dl (70-99); LIPASE 148 U/L (73-393); POTASSIUM 3.7 mmol/L (3.5-5.1); SODIUM 136 mmol/L (136-145)
--- NOTE | 2017-10-29 09:11 | DIAGNOSTIC IMAGING REPORT ---
KUB HISTORY: Acute right flank pain with right-sided ureteral calculus EVALUATE FOR OBSTRUCTION/STONE COMPARISON: CT abdomen and pelvis 10/28/2017 FINDINGS: The bowel gas pattern is non-obstructive. There is no organomegaly. Right renal shadow is partially obscured by mild to moderate colonic stool volume. Previously described 8 mm calculus of the proximal right ureter is not definitively seen. Multiple round calcifications about the pelvis suggest phleboliths. No pneumoperitoneum or pneumatosis. No fracture. IMPRESSION: Previously described 8 mm calculus of the proximal right ureter is not definitively seen on this study. Mild to moderate amount of obscuring bowel gas is noted throughout the colon. Electronically signed by: Harvey Souza M.D. 10/29/2017 9:10 AM Dictated Date/Time: 10/29/2017 9:06 AM
[2017-10-29 09:13] LABS: ALKALINE PHOSPHATASE 89 U/L (45-117); TOTAL PROTEIN 7.8 gm/dl (6.4-8.2)
[2017-10-29] MEDS ORDERED: ACETAMINOPHEN IV 100 ML IV ONE (09:15)
[2017-10-29] MEDS ORDERED: OXYC1TAB3 PO (10:13)
[2017-10-29 10:36] VITALS: BP 137/93; PULSE 70; O2SAT 100
--- NOTE | 2017-10-29 11:50 | EMERGENCY ROOM VISIT NOTE ---
ED Visit Note First contact with patient: 07:57 Chief Complaint: Right flank pain. History of Present Illness: Ms. Fischer is a 32-year-old white female who ambulates into the ED complaining of right flank pain and nausea/vomiting. Historically patient has a history of multiple urethral calculi and kidney stones. She did have a complicated case once in which a catheter was placed and sustained a urethral injury. She was seen here last night and was diagnosed with a right ureter calculi measuring approximately 6 mm. She was feeling better on discharge but refused home narcotics because she is currently nursing her child. She was discharged on antinausea medications, and Flomax encouraged to follow-up with her urologist. Patient reports since being discharged she had increasing amount of pain overnight predominantly at 3 AM which was approximately 5 hours before she arrived in the emergency department. Currently patient complains of waves of severe pain in the right flank and radiating down into the right lower quadrant. She currently rates her discomfort 8/10. Her pain slightly worsens with percussion of the kidney and sometimes with movement. She has not identified any alleviating factors related to the pain. She has not had any additional medications for her pain prior to arrival at the hospital. Previously noted she has been nauseated and had one episode of vomiting. She denies fevers, chills, sweats, skin eruptions, skin color changes, upper respiratory tract symptoms, chest pain, shortness of breath, left-sided abdominal pain, diarrhea, constipation, urinary symptoms. Review of Systems: As noted above in history of present illness. All body systems were reviewed and found to be negative as noted above. Past Medical History: As previously noted Current Medications: Flomax, Zofran and probiotic. Allergies to Medications: Penicillin. Social History: As previously noted and status post appendectomy, and unspecified knee and ankle surgery. Physical Examination: Vital Signs: Date Time Temp Pulse Resp B/P (MAP) Pulse Ox O2 Delivery O2 Flow Rate FiO2 10/29/17 10:36 70 16 137/93 100 10/29/17 09:35 70 20 140/76 100 10/29/17 07:54 36.6 91 20 151/103 96 Room Air GENERAL: 32-year-old female in mild to moderate distress due to pain, nontoxic- appearing, afebrile and hemodynamically stable. NEUROLOGICAL: Awake, alert and oriented to person, place and time. Answering questions appropriately and following commands. Normal gait. Good hand eye coordination. No focal motor sensory deficits. SKIN: Warm, dry and pink. No soft tissue eruptions or trauma noted. HEENT: Atraumatic and normocephalic. PERRLA. Sclera white and conjunctiva pink. No drainage from naris. Oral cavity moist and pink. Pharynx is nonerythematous or edematous. Speech normal. No lymphadenopathy. Trachea midline. No jugular venous distention. BACK: No tenderness over the bony spine. Mild to moderate right sided CVA tenderness. THORAX: Lungs sounds are clear to auscultation and equal bilaterally with symmetrical chest wall. No wheezing, rales or rhonchi. No crepitus, tenderness , subcutaneous air or deformities noted. HEART: Regular rate and rhythm. No gallops, rubs or murmurs are appreciated. ABDOMEN: Obese, soft and nontender. Positive bowel sounds in all quadrants. No guarding, rigidity or organomegaly. EXTREMITIES: Moves all extremities well on command and with purpose. All distal neurovascular statuses are intact and equal bilaterally. ED Course: Patient is assessed as noted above. Patient's medication list was reviewed. Laboratory Testing: Test 10/29/17 08:30 Range/Units White Blood Count 12.74 4.8-10.8 K/uL Red Blood Count 4.59 4.2-5.4 M/uL Hemoglobin 13.2 12.0-16.0 g/dL Hematocrit 38.8 37-47 % Mean Corpuscular Volume 84.5 80-100 fL Mean Corpuscular Hemoglobin 28.8 25-34 pg Mean Corpuscular Hemoglobin Concent 34.0 32-36 g/dl Platelet Count 283 130-400 K/uL Mean Platelet Volume 9.7 7.4-10.4 fL Neutrophils (%) (Auto) 87.4 % Lymphocytes (%) (Auto) 7.8 % Monocytes (%) (Auto) 3.6 % Eosinophils (%) (Auto) 0.7 % Basophils (%) (Auto) 0.2 % Neutrophils # (Auto) 11.13 1.4-6.5 K/uL Lymphocytes # (Auto) 1.00 1.2-3.4 K/uL Monocytes # (Auto) 0.46 0.11-0.59 K/uL Eosinophils # (Auto) 0.09 0-0.5 K/uL Basophils # (Auto) 0.02 0-0.2 K/uL RDW Standard Deviation 40.5 36.4-46.3 fL RDW Coefficient of Variation 13.2 11.5-14.5 % Immature Granulocyte % (Auto) 0.3 % Immature Granulocyte # (Auto) 0.04 0.00-0.02 K/uL Urine Color ORANGE Urine Appearance CLOUDY CLEAR Urine pH 6.5 4.5-7.5 Urine Specific [place] 1.024 1.000-1.030 Urine Protein 1+ NEG Urine Glucose (UA) NEG NEG Urine Ketones NEG NEG Urine Occult Blood 3+ NEG Urine Nitrite NEG NEG Urine Bilirubin NEG NEG Urine Urobilinogen NEG NEG Urine Leukocyte Esterase TRACE NEG Urine WBC (Auto) 5-10 0-5 /hpf Urine RBC (Auto) >30 0-4 /hpf Urine Hyaline Casts (Auto) 1-5 0-5 /lpf Urine Epithelial Cells (Auto) 10-20 0-5 /lpf Urine Bacteria (Auto) NEG NEG Urine Renal Epithelial Cells 0-5 /lpf Sodium Level 136 136-145 mmol/L Potassium Level 3.7 3.5-5.1 mmol/L Chloride Level 107 98-107 mmol/L Carbon Dioxide Level 25 21-32 mmol/L Anion Gap 4.0 3-11 mmol/L Blood Urea Nitrogen 17 7-18 mg/dl Creatinine 1.13 0.60-1.20 mg/dl Est Creatinine Clear Calc Drug Dose 82.8 ml/min Estimated GFR () 74.5 Estimated GFR (Non- 64.3 BUN/Creatinine Ratio 14.6 10-20 Random Glucose 133 70-99 mg/dl Calcium Level 8.3 8.5-10.1 mg/dl Total Bilirubin 0.3 0.2-1 mg/dl Direct Bilirubin < 0.1 0-0.2 mg/dl Aspartate Amino Transf (AST/SGOT) 15 15-37 U/L Alanine Aminotransferase (ALT/SGPT) 26 12-78 U/L Alkaline Phosphatase 89 45-117 U/L Total Protein 7.8 6.4-8.2 gm/dl Albumin 3.9 3.4-5.0 gm/dl Lipase 148 73-393 U/L KUB: Was read by myself and the radiologist shows a moderate amount of obscuring bowel gas pattern throughout the colon and patient's right ureter calculus was not noted. There was also no pneumoperitoneum or pneumatosis. Patient was hydrated with normal saline, she received 4 mg of Zofran IV, 30 mg of Toradol IV, 1 g of acetaminophen IV and 0.4 mg Flomax by mouth for her symptoms. Patient was reassessed multiple times during her stay in the emergency department. Patient's case was reviewed with Dr. Zendejas; we agreed on diagnostic approach, treatment, disposition and plan. Patient's case was consulted with Dr. Steve Seymour, urologist; he suggested admission, continued ibuprofen and acetaminophen or narcotics as needed for pain. Patient was educated about today's findings and instructed on her treatment plan ; she verbalized understanding and agreement with this plan. Clinical Impression: Right ureter calculus. Right flank pain. Decision-Making: Initially my differential diagnosis I considered urinary tract infection with calculus, pancreatitis and other causes. Disposition: Patient discharged home in stable condition accompanied by her mother; prior to departure she was reassessed and subjectively reported she was feeling better and rated her discomfort 3/10. She also reported she had resolution of nausea Plan: Patient was given a prescription for OxyIR and instructed on their use including alternating acetaminophen and/or ibuprofen with her OxyIR. She was given appropriate narcotic precautions and her name was checked on the state database and no red flags were noted. Patient was encouraged to take her prescribed Zofran and Flomax as prescribed. Patient was encouraged to stay well-hydrated with increased clear fluids. Patient was encouraged to strain all urine and collect all stones for analysis. Patient was encouraged to follow-up with her urologist next week for definitive care and treatment. Patient was encouraged return the ED for worsening/uncontrolled pain, uncontrolled nausea/vomiting, fevers or any new/concerning symptoms.
[2017-11-01] MEDS ORDERED: ACET-1256 PO (16:17)
== END 2017-10-29 10:38 | disposition home or self-care (01) ==
LOC: C.EDB 07:56
DX: N20.1 Calculus of ureter (principal); Z79.899 Other long term (current) drug therapy; Z88.0 Allergy status to penicillin

== ENCOUNTER → 2017-11-01 | Outpatient (CLI) | payer OTHER ==
[~2017-11-01] MED LIST changes: +ACET-1256 PO; +OXYC1TAB3 PO
== END | disposition home or self-care (01) ==
LOC: C.LABSPEC 17:33
PROVIDERS: ATTEND Urology
DX: N20.0 Calculus of kidney (principal)

== ENCOUNTER → 2017-11-04 | Day surgery (SDC) | payer OTHER ==
[2017-11-01 16:17] VITALS: Ht 165.1 cm; Wt 96.8 kg
--- NOTE | 2017-11-03 14:24 | DIAGNOSTIC IMAGING REPORT ---
KUB HISTORY: Follow-up study in a patient with nephrolithiasis N20.0 Nephrolithiasis COMPARISON: KUB 10/29/2017 FINDINGS: The bowel gas pattern is non-obstructive. There is moderate stool volume about the right hemicolon. There is no organomegaly. Renal shadows are partially obscured by bowel gas. No renal or ureteral calculi are identified. Previously described right-sided nephrolithiasis are not definitively seen on this study. Multiple calcifications of the pelvis are redemonstrated suggesting phleboliths. No pneumoperitoneum or pneumatosis. No fracture. IMPRESSION: Renal shadows are partially obscured by bowel gas. No renal or ureteral calculi identified. Electronically signed by: Harvey Souza M.D. 11/03/2017 2:23 PM Dictated Date/Time: 11/03/2017 2:21 PM
[~2017-11-04] VITALS: Ht 165.1 cm; Wt 96.8 kg
[~2017-11-04] MED LIST changes: +ATROPINE SULFATE 0.1 MG/ML 5ML SYR IV PRN; +CEFAZOLIN 2000MG IV PUSH 15 ML IV SCH; +DEXAMETHASONE SOD INJ 4 MG/ML VIAL ONE; +EpHEDrine SULFATE INJ 50 MG/ML AMP IV PRN; +FENTANYL CITRATE INJ 50 MCG/1 ML 2 ML VIAL ONE; +HYDROCODONE/ACETAMIN 5/325MG TAB PO PRN; +LACTATED RINGER'S 1000ML 1,000 ML IV SCH; +LIDOCAINE HCL 2% 2 ML VIAL (20MG/ML) ONE; +MIDAZOLAM HCL 1 MG/ML 2ML VIAL ONE; +NURSING VERBAL MED ORDER ONE; +ONDANSETRON INJ 2 MG/ML 2 ML VIAL IV PRN; +ONDANSETRON INJ 2 MG/ML 2 ML VIAL ONE; -OXYC1TAB3 PO; +PROPOFOL IV EMULSION 10 MG/ML 20 ML VIAL ONE; +SODIUM CHLORIDE 0.9% 1000ML 1,000 ML IV SCH; +TRAM-10 PO
--- NOTE | 2017-11-04 12:01 | History & Physical Bridge Note ---
H&P Re-Evaluation Bridge Note: I have examined the patient, reviewed the History & Physical and in the interval since the performance of the History & Physical I have noted the following changes of clinical significance: No changes noted
--- NOTE | 2017-11-04 12:36 | Discharge Instructions-SurgCtr ---
Discharge Instructions Date of Service November 04, 2017. Visit Reason for Visit: Stones Discharge Discharge Diagnosis / Problem: stones Discharge Goals Goal(s): Decrease discomfort, Improve function, Increase independence, Improve disease control Activity Recommendations Activity Limitations: resume your previous activity Lifting Limitations: none Exercise/Sports Limitations: none May Resume Sexual Activity: when tolerated Shower/Bathe: no limitations Driving or Machine Use: resume 1 day after discharge Anesthesia . Post Anesthesia Instructions: If you have had General Anesthesia or IV Sedation: * Do not drive today. * Resume driving when surgeon permits. * Do not make important decisions or sign legal documents today. * Call surgeon for: 1. Temperature elevations greater than 101 degrees F. 2. Uncontrollable pain. 3. Excessive bleeding. 4. Persistent nausea and vomiting. 5. Medication intolerance (nausea, vomiting or rash). * For nausea and vomiting use only clear liquids such as: tea, soda, bouillon until nausea subsides, then gradually increase diet as tolerated. * If you have any concerns or questions, call your surgeon's office. If physician is unavailable and it is an emergency, call 911 or go to the nearest emergency room. . Diet Recommendations Home Diet: no limitations, resume previous diet Procedures Procedures Performed: Right Extracorporeal Shock Wave Lithotripsy-Ureteral Pending Studies Studies pending at discharge: no Medical Emergencies . Who to Call and When: Medical Emergencies: If at any time you feel your situation is an emergency, please call 911 immediately. . Non-Emergent Contact Non-Emergency issues call your: Urologist Call Non-Emergent contact if: you have a fever, temperature is above 101.5, your pain is not controlled, your pain is worsening . . "Provider Documentation" section prepared by Roberto Saini. . [place] Drug Monitoring Program Search Results: patient reviewed within database, no issues identified Drug Monitoring Findings: one recent prescription
--- NOTE | 2017-11-04 12:38 | [facility] Operative Report ---
Operative Report Operative Date November 04, 2017. Pre-Operative Diagnosis Kidney stone right ureter Post-Operative Diagnosis Same as pre-op Procedure(s) Performed Right Extracorporeal Shock Wave Lithotripsy-Ureteral Surgeon Taxicab Starter Surgeon(s) None Estimated Blood Loss Zero Findings Right mid/distal ureteral stone Specimens None Drains None Anesthesia Type General Complication(s) none Disposition yes Recovery Room / PACU Indications Symptomatic right ureteral stone Description of Procedure The patient was identified in the preoperative holding area, appropriate informed consent was reviewed and completed and the patient was transported to the operating suite. Upon arrival appropriate preoperative antibiotics were administered and general anesthesia induced. The patient was placed in supine position and the stone was localized under fluoroscopy. A total of 3000 shocks were delivered to the stone. There appeared to be good fragmentation of the stone. Details of this procedure can be found on the [facility] information sheet. At the conclusion of the case the patient was extubated and taken to the PACU in stable condition. There were no complications. I attest to the content of the Intraoperative Record and any orders documented therein. Any exceptions are noted below.
[2017-11-04] MEDS: FENTANYL CITRATE INJ 50 MCG/1 ML 2 ML VIAL IV PRN ×4 (13:15→13:34)
[2017-11-04 14:03] VITALS: TEMP 36.6
[2017-11-04 14:28] VITALS: BP 143/91; PULSE 65; O2SAT 97
--- NOTE | 2017-11-04 14:51 | Anesthesia Progress Nt - [facility] ---
Anesthesia Post Op Note Date & Time November 04, 2017 at 14:50 Vital Signs Pain Intensity: 6 Vital Signs Past 12 Hours Date Time Temp Pulse Resp B/P (MAP) Pulse Ox O2 Delivery O2 Flow Rate FiO2 11/04/17 14:28 65 16 143/91 (108) 97 Room Air 11/04/17 14:03 36.6 80 16 131/84 (100) 96 Room Air 11/04/17 13:49 36.4 71 12 146/92 96 Room Air 11/04/17 13:47 71 13 100 11/04/17 13:47 71 13 11/04/17 13:46 146/92 11/04/17 13:42 66 8 99 11/04/17 13:42 65 8 11/04/17 13:41 140/101 11/04/17 13:37 65 15 11/04/17 13:37 64 15 94 11/04/17 13:36 138/102 11/04/17 13:32 67 13 11/04/17 13:32 66 13 99 11/04/17 13:31 129/94 11/04/17 13:27 73 15 11/04/17 13:27 73 15 99 11/04/17 13:26 71 14 141/98 98 11/04/17 13:26 70 14 11/04/17 13:21 69 16 11/04/17 13:21 68 16 143/106 98 11/04/17 13:16 73 10 11/04/17 13:16 74 10 150/100 98 11/04/17 13:11 79 15 11/04/17 13:11 79 15 154/107 98 11/04/17 13:08 151/104 11/04/17 13:07 150/109 11/04/17 13:06 36.5 85 20 151/104 96 Diffusion Mask 6 11/04/17 10:29 36.9 80 18 131/84 (100) 97 Room Air Notes Mental Status: alert / awake / arousable, participated in evaluation Pt Amnestic to Procedure: Yes Nausea / Vomiting: adequately controlled Pain: adequately controlled Airway Patency, RR, SpO2: stable & adequate BP & HR: stable & adequate Hydration State: stable & adequate Anesthetic Complications: no major complications apparent
== END | disposition home or self-care (01) ==
LOC: X.SURG 10:19
PROVIDERS: ATTEND Urology
DX: N20.0 Calculus of kidney (principal); E66.9 Obesity, unspecified; F17.200 Nicotine dependence, unspecified, uncomplicated; Z82.49 Family history of ischemic heart disease and other diseases of the circulatory system; Z80.0 Family history of malignant neoplasm of digestive organs; Z22.330 Carrier of Group B streptococcus